=== PATIENT | male | born 1970 | race African-American/Black ===

== ENCOUNTER → 2017-07-26 | Day surgery (SDC) | payer OTHER ==
[~2017-07-26] VITALS: Ht 172.7 cm; Wt 84.9 kg
[~2017-07-26] MED LIST: ACETAMINOPHEN 1000 MG/100 ML 100 ML IV ONE; AMLO10TA2 PO; BUPIVACAINE LIPOSO 1.3% PRN; BUPIVACAINE LIPOSOME PF 1.3% 20 ML VIAL ONE; CHLORHEXIDINE GLUCONATE 2 % 1 PACK (2 CLOTHS) TOPICAL PRN; CHLORHEXIDINE GLUCONATE 4% SOLN 120 ML BTL TOPICAL SCH; CYCL5TAB PO; DEXAMETHASONE SOD PHOS 4 MG/ML VIAL IV ONE; DO NOT ADM ANY ANTICOAGULANT DRUGS PRN; EPINEPHrine HCL (1:1000) 1 MG/ML VIAL ONE; FAMOTIDINE 20 MG/2 ML VIAL ONE; FAT EMULSION 20% INJ 0 ML ONE; FLUO20CA12 PO; GLYCOPYRROLATE 1 MG/5 ML SYRINGE IV PUSH ONE; IBUP1TAB7 PO; LACTATED RINGER'S 1000 ML INJ 1,000 ML IV ONE; LACTATED RINGER'S 1000 ML IV PRN; LIDOCAINE HCL 1% PF 5 ML SYRINGE OTHER ONE; LOSA25TA PO; METOPROLOL TARTRATE 25 MG TAB PO PRN; MIDAZOLAM HCL 2 MG/2 ML VIAL ONE; MIDAZOLAM HCL 5 MG/ML VIAL (1 ML) IV PRN; NEOSTIGMINE 5 MG/5 ML SYRINGE IV PUSH ONE; ONDANSETRON HCL 4 MG/2 ML VIAL IV ONE; PHENYLEPH/NS 1000 MCG/10 ML SYR IV ONE; POVIDONE IODINE 5% (ANTISEPSIS KIT) 4 APPLICATIONS EACH NARE PRN; PROPOFOL 200 MG/20 ML AMP IV ONE; ROCURONIUM INJ 50 MG/5 ML SYRINGE IV PUSH ONE; SAWCAP2 PO; SODIUM CHLORID 0.9% 500 ML IV PRN; SODIUM CHLORIDE 0.9% PRN; TAMS0.4C4 PO; TRAM50TA PO; VANCOMYCIN 1 GM/200 ML INJ 200 ML IV SCH; VESI5TAB2 PO; ceFAZolin 2 GM PREMIX 50 ML IV SCH; ceFAZolin INJ 1,000 MG VIAL IV ONE; ePHEDrine/NS 25 MG/5 ML SYRINGE IV ONE; oxyCODONE/ACETAMINOPHEN 5 MG/325 MG TAB PO PRN
[2017-07-26 06:04] VITALS: PULSE 69
--- NOTE | 2017-07-26 09:30 | MP ---
cc: Aidan Sanford MD DATE OF OPERATION: 07/26/2017 PREOPERATIVE DIAGNOSIS: Right shoulder thickness rotator cuff tear, impingement syndrome and biceps tendon partial tear. POSTOPERATIVE DIAGNOSES: 1. Right shoulder full-thickness supraspinatus and a portion of the infraspinatus rotator cuff tear. 2. Right shoulder superior labral tear, posterior labral tear and partial biceps tendon tear. 3. Right shoulder impingement syndrome. PROCEDURE: 1. Right shoulder arthroscopic rotator cuff repair using [employer] SpeedBridge technique. 2. Right shoulder arthroscopic extensive debridement posterior labrum, superior labrum and biceps tendon. 3. Right shoulder arthroscopic subacromial decompression. ANESTHETIC: Interscalene block and general. SURGEON: Aidan Sanford MD. FIELD MARKETING LEAD: ZONIA Pizarro. ESTIMATED BLOOD LOSS: Minimum. DRAIN: None. SPECIMENS: None. COMPLICATIONS: None known. INDICATIONS: Sonny Alexander is a 47-year-old male with persistent debilitating right shoulder pain and significant findings on MRI scan. He now presents for arthroscopic surgery. The risks, benefits and the alternatives to treatment were thoroughly discussed. A detailed informed consent was obtained. MERCHANDISING DIRECTOR: The senior administrative assistant is an advance registered nurse practitioner and his skill set was medically necessary for the performance of the operation. PROCEDURE IN DETAIL: The patient was given interscalene block in the preop holding area. He was brought into the operating room, placed under general anesthetic. He is turned to lateral decubitus position with an axillary roll in place and positioned on a beanbag. The right shoulder was draped and prepped in the usual sterile fashion. IV antibiotics were given. Time-out was completed. We used 10 pounds of traction. It should be noted that the senior administrative assistant is an advance registered nurse practitioner and his skilled set was medically necessary for the performance of the operation. After the time-out was completed, we made our 3 portal technique, a posterior soft spot and then at the junction of the lateral and the anterior aspect of the acromion and then eventually an accessory portal anteriorly. We used two arthroscopic cannulas. The arthroscope was introduced posteriorly and the first photograph shows a normal-appearing articular humeral head and some fraying about the posterior labrum. Second photograph shows superior labral fraying and marked biceps tendon fraying. We proceeded with arthroscopic extensive debridement, smoothing and contouring the biceps tendon, the superior labrum and the posterior labrum. The majority of the biceps remained intact. Followup photograph shows the result here. Looking upward, we saw the full-thickness rotator cuff tear. We debrided the footprint of the tear and the edges of the tear from underneath and then came into the subacromial space and performed subacromial bursectomy. I identified the anterior acromial spur, resected a portion of the coracoacromial ligament, performed anterior acromionectomy removing approximately 3 mm of bone anteriorly. I then finished preparing the edge of the cuff and assessing for repair and debriding to bleeding bone and then we proceeded with our SpeedBridge technique with 2 anchors along the articular margin with FiberTape passing this. We did an accessory suture posteriorly and did a [id number] stitch and we did an accessory anterior stitch, which was a [id number] stitch, but we tensioned this to the lateral anterior anchor. We placed our lateral row anchors. Excellent fixation and excellent stability. Followup photograph showed the final result. Hemostasis was very good. Arthroscopic equipment was removed. The portals were closed with absorbable suture. Steri-Strips were applied. Sterile dressing applied. The patient was awakened and returned to the recovery room in stable condition. MD LUPE Mcrae/JERI , 09:09 AM , 09:29 AM
[2017-07-26 11:18] VITALS: BP 138/80; PULSE 78; RESP 20; TEMP 97.2; O2SAT 96
--- NOTE | 2017-07-26 16:38 | EKG ---
Date Performed: 07/26/2017 Time Performed: 06:12:15 PTAGE: 47 years EKG: Sinus rhythm NORMAL ECG NO PREVIOUS TRACING DOCTOR: Rivas Montoya Interpretating Date/Time 07/26/2017 16:32:33
== END | disposition home or self-care (01) ==
LOC: HSDC 05:18
PROVIDERS: ATTEND Orthopaedic Surgery Sports Medicine
DX: M75.101 Unspecified rotator cuff tear or rupture of right shoulder, not specified as traumatic (principal); M75.41 Impingement syndrome of right shoulder; I10 Essential (primary) hypertension
CPT/HCPCS: 01630; 29823; 29826; 29827; 64415; 93005; C1713; C9290; J0131; J0171; J0690; J1100; J2250; J2370; J2405; J2710; J3010; J3370; J7120